=== PATIENT | female | born 1985 | race Caucasian/White ===

== ENCOUNTER → 2017-01-31 | Outpatient (CLI) | payer OTHER ==
--- NOTE | 2017-01-31 12:58 | REP ---
Right foot four views : There is no fracture or dislocation. Mineralization and joint spaces are normal. There are no calcifications or foreign bodies. Impression: Negative right foot . Signed by Virgilio Morataya MD 01/31/2017 12:49 P
== END ==
LOC: M WUC 11:14
PROVIDERS: ATTEND Physician Assistant
DX: M79.671 Pain in right foot (principal)

== ENCOUNTER → 2017-02-22 | Outpatient (REF) | payer OTHER | LOC: M LAB REF 17:33 | PROVIDERS: ATTEND Nurse Practitioner Family | DX: Z11.59 Encounter for screening for other viral diseases (principal) ==

== ENCOUNTER → 2017-03-27 | Outpatient (CLI) | payer OTHER | LOC: M OUTALCOH 12:38 | PROVIDERS: ATTEND Psychiatry & Neurology Psychiatry | DX: Z13.9 Encounter for screening, unspecified (principal); F10.20 Alcohol dependence, uncomplicated ==

== ENCOUNTER → 2018-04-17 | Outpatient (REF) | payer OTHER ==
[2018-04-17 13:18] LABS: HEMOGLOBIN 12.3 g/dl (12.0-15.5); MEAN CORPUSCULAR HEMOGLOBIN 30.8 pg (27.0-33.0); MEAN CORPUSCULAR HGB CONC 34.2 g/dl (32.0-36.5); MEAN CORPUSCULAR VOLUME 90.2 fl (80.0-96.0); PLATELET COUNT, AUTOMATED 271 10^3/uL (150-450); RED BLOOD COUNT 3.99 10^6/uL (4.00-5.40); RED CELL DISTRIBUTION WIDTH 11.4 % (11.5-14.5)
[2018-04-17 22:21] LABS: HCG, SERUM QUANTITATIVE 21991 MIU/ML
[2018-04-18 15:44] LABS: HBsAg Prenatal NEGATIVE (NEGATIVE)
[2018-04-18 15:44] LABS: HEPATITIS C VIRUS ABY INDEX 0.1 INDEX (<0.8)
[2018-04-18 15:45] LABS: HIV 1&2 SCREEN CENTAUR NEGATIVE (NEGATIVE); RUBELLA IgG QUALITATIVE IMMUNE (IMMUNE)
== END ==
LOC: M LAB REF 12:35
DX: O36.80X0 Pregnancy with inconclusive fetal viability, not applicable or unspecified (principal)

== ENCOUNTER → 2018-09-05 | Outpatient (CLI) | payer OTHER ==
[2018-09-05 16:46] LABS: HEMATOCRIT 33.6 % (36.0-47.0); HEMOGLOBIN 11.3 g/dl (12.0-15.5); MEAN CORPUSCULAR HEMOGLOBIN 31.2 pg (27.0-33.0); MEAN CORPUSCULAR HGB CONC 33.6 g/dl (32.0-36.5); MEAN CORPUSCULAR VOLUME 92.8 fl (80.0-96.0); PLATELET COUNT, AUTOMATED 224 10^3/uL (150-450); RED BLOOD COUNT 3.62 10^6/uL (4.00-5.40)
== END ==
LOC: M LAB 15:33
PROVIDERS: ATTEND Obstetrics & Gynecology
DX: Z34.82 Encounter for supervision of other normal pregnancy, second trimester (principal)

== ENCOUNTER → 2018-09-16 | Outpatient (CLI) | payer OTHER | LOC: M LAB 07:22 | PROVIDERS: ATTEND Obstetrics & Gynecology | DX: R73.02 Impaired glucose tolerance (oral) (principal) ==

== ENCOUNTER → 2018-11-13 | Outpatient (REF) | payer OTHER, MEDICAID | LOC: M LAB REF 13:07 | PROVIDERS: ATTEND Obstetrics & Gynecology | DX: Z34.83 Encounter for supervision of other normal pregnancy, third trimester (principal) ==

== ENCOUNTER 2018-11-28 00:04 | Inpatient (IN) | payer OTHER, MEDICAID ==
[2018-11-28] VITALS (9 sets, daily range): BP systolic 98–128; BP diastolic 53–69
[~2018-11-28] VITALS: Ht 160 cm; Wt 65.9 kg
[2018-11-28] MEDS ORDERED: PRENTAB77 PO (00:49)
[2018-11-28] MEDS ORDERED: OXYTOCIN 30 UNITS IN 0.9% NaCl 500ML IV BAG (J2590) As Ordered ONE (01:08)
[2018-11-28] MEDS ORDERED: LR 1,000 ML IV SCH (01:44)
[2018-11-28] MEDS ORDERED: LACTATED RINGER'S 1000 ML IV STA (01:44)
[2018-11-28] MEDS ORDERED: OXYTOCIN DRIP 30 UNITS in APPROPRIATE DILUENT 1 EA IV SCH (01:46)
[2018-11-28] MEDS ORDERED: ACETAMINOPHEN 500 MG TAB PO PRN (02:00)
[2018-11-28] MEDS ORDERED: MEASLES,MUMPS,RUBELLA VACCINE INJ (MMR-II) (90707) SC SCH (02:00)
[2018-11-28] MEDS ORDERED: IBUPROFEN 800 MG TAB PO PRN (02:00)
[2018-11-28] MEDS ORDERED: IBUPROFEN 600 MG TAB PO PRN (02:00)
[2018-11-28] MEDS ORDERED: RHOGAM 300 MCG (1500 IU) INJ (J2790) IM SCH (02:00)
[2018-11-28] MEDS ORDERED: METHYLERGONOVINE MALEATE 0.2 MG TAB PO PRN (02:00)
[2018-11-28] MEDS ORDERED: DIBUCAINE 1% OINTMENT 30GM TOP PRN (02:00)
[2018-11-28] MEDS ORDERED: ACETAMINOPHEN TAB 650MG DOSE (2X325MG) PO PRN (02:00)
[2018-11-28] MEDS ORDERED: DOCUSATE SODIUM 100 MG CAP PO PRN (02:00)
[2018-11-28 02:08] LABS: CORD GAS ABE V -4.5; CORD GAS HCO3 V 17.5 MEQ/L; CORD GAS O2 SAT V 66.5 %; CORD GAS PCO2 V 26.2 mmHg; CORD GAS PH V 7.443 UNITS; CORD GAS PO2 V 25.1 mmHg; CORD GAS TCO2 V 18.3 MEQ/L
[2018-11-28 02:11] LABS: CORD GAS ABE A -3.1; CORD GAS HCO3 A 21.4 MEQ/L; CORD GAS O2 SAT A 34.6 %; CORD GAS PCO2 A 36.7 mmHg; CORD GAS PH A 7.383 UNITS; CORD GAS PO2 A 15.5 mmHg; CORD GAS SBC A 20.3 MEQ/L; CORD GAS TCO2 A 22.5 MEQ/L
[2018-11-28 02:29] LABS: HEMATOCRIT 29.6 % (36.0-47.0); HEMOGLOBIN 9.8 g/dl (12.0-15.5); MEAN CORPUSCULAR HEMOGLOBIN 28.4 pg (27.0-33.0); MEAN CORPUSCULAR HGB CONC 33.1 g/dl (32.0-36.5); MEAN CORPUSCULAR VOLUME 85.8 fl (80.0-96.0); PLATELET COUNT, AUTOMATED 251 10^3/uL (150-450); RED BLOOD COUNT 3.45 10^6/uL (4.00-5.40); WHITE BLOOD COUNT 14.8 10^3/uL (4.0-10.0)
--- NOTE | 2018-11-28 07:17 | HPE ---
DATE OF ADMISSION: 11/28/2018 Beatriz Leon is a 33-year-old female, 4, para 2-0-1-2, with an expected date of confinement (EDC) of 12/11/2018, estimated gestational age (EGA) 38-2/7 weeks gestation who presented to labor and delivery with spontaneous rupture of membranes in active labor. Upon my evaluation, she was found to be fully dilated with fetus at 0 station. At this point, a decision was made for admission. Her record was reviewed which was essentially unremarkable. LABS: Blood type is B+, rubella immune, hepatitis negative, HIV negative, GC and chlamydia negative, 1-hour sugar testing was abnormal, her 3 hours was within normal limits. Her GBS is negative. PAST MEDICAL HISTORY: Denies. PAST SURGICAL HISTORY: [place] tooth extraction and a dilatation and curettage. SOCIAL HISTORY: The patient is a former smoker. Denies any alcohol or drug use. FAMILY HISTORY: Unremarkable. REVIEW OF SYSTEMS: Unremarkable. PHYSICAL EXAMINATION: Normal-appearing female in no acute distress. Abdomen: Soft, nontender, nondistended. Extremities: No clubbing, cyanosis or edema. Vaginal Exam: Fully dilated, fetus at 0 station, in vertex position. Tracing reviewed, category one tracing. ASSESSMENT: Intrauterine at 38-2/7 weeks gestation with spontaneous rupture of membranes in second phase of labor. PLAN: Admit to labor and delivery. Routine labs sent. Awaiting delivery.
--- NOTE | 2018-11-28 07:25 | DN ---
DATE OF DELIVERY: 11/28/2018 Beatriz is a 33-year-old female, 4, para 2-0-1-2, who was admitted at 38-2/7 weeks gestation with spontaneous rupture of membrane in active labor. She then pushed and delivered a live male in right occiput anterior position over an intact perineum. Apgars 7 and 9. weight 6 pounds 11 ounces. Placenta delivered spontaneously intact. Three-vessel cord. Estimated blood loss 300 mL. Both mother and baby in stable condition.
[2018-11-28] MEDS: PRENATAL VITAMINS CHEWABLE TABLET PO SCH (07:52)
[2018-11-29 06:00] VITALS: BP 101/55
[2018-11-29] MEDS: PRENATAL VITAMINS CHEWABLE TABLET PO SCH (08:36)
[2018-11-29] MEDS ORDERED: IBUP-1114 PO (13:17)
[2018-11-29] MEDS ORDERED: PREN29TA4 PO (13:17)
[2018-11-29] MEDS ORDERED: MAPA500T2 PO (13:17)
== END 2018-11-29 13:50 | disposition home or self-care (01) | DRG 807 ==
LOC: M LDO 00:04 → M LDI 00:32 → M OBS 03:45
PROVIDERS: ADMIT Obstetrics & Gynecology; ATTEND Obstetrics & Gynecology
PROC: 10E0XZZ Delivery of Products of Conception, External Approach (ICD-10-PCS; principal; 2018-11-28)
DX: O80 Encounter for full-term uncomplicated delivery (principal); Z37.0 Single live birth; Z3A.38 38 weeks gestation of pregnancy

== ENCOUNTER → 2019-03-09 | Outpatient (CLI) | payer MEDICAID ==
[~2019-03-09] MED LIST: IBUP-1114 PO; MAPA500T2 PO; PREN29TA4 PO; PRENTAB77 PO
== END ==
LOC: M OUTALCOH 08:00
PROVIDERS: ATTEND Psychiatry & Neurology Psychiatry
DX: F10.10 Alcohol abuse, uncomplicated (principal)

== ENCOUNTER → 2019-04-08 | Outpatient (REF) | payer MEDICAID ==
[2019-04-08 18:35] LABS: HEMOGLOBIN 12.7 g/dl (12.0-15.5); MEAN CORPUSCULAR HEMOGLOBIN 29.1 pg (27.0-33.0); MEAN CORPUSCULAR HGB CONC 33.4 g/dl (32.0-36.5); PLATELET COUNT, AUTOMATED 259 10^3/uL (150-450); RED BLOOD COUNT 4.37 10^6/uL (4.00-5.40); WHITE BLOOD COUNT 11.4 10^3/uL (4.0-10.0)
[2019-04-08 19:12] LABS: HCG, SERUM QUANTITATIVE 58979 MIU/ML
[2019-04-08 19:16] LABS: RUBELLA IgG QUALITATIVE IMMUNE (IMMUNE)
[2019-04-08 19:45] LABS: HIV 1&2 SCREEN CENTAUR NEGATIVE (NEGATIVE)
[2019-04-10 11:46] LABS: HEPATITIS C VIRUS ABY INDEX 0.1 INDEX (<0.8)
== END ==
LOC: M LAB REF 17:36
PROVIDERS: ATTEND Obstetrics & Gynecology
DX: O36.80X0 Pregnancy with inconclusive fetal viability, not applicable or unspecified (principal); Z3A.00 Weeks of gestation of pregnancy not specified

== ENCOUNTER → 2019-04-13 | Outpatient (RCR) | payer MEDICAID | LOC: M OUTALCOH 03-18 10:04 | PROVIDERS: ATTEND Psychiatry & Neurology Psychiatry | DX: F10.10 Alcohol abuse, uncomplicated (principal) ==

== ENCOUNTER 2019-05-08 08:30 | Outpatient (RCR) | payer MEDICAID | END 2019-05-14 | LOC: M OUTALCOH 08:30 | PROVIDERS: ATTEND Psychiatry & Neurology Psychiatry | DX: F10.10 Alcohol abuse, uncomplicated (principal) ==

== ENCOUNTER 2019-06-05 09:30 | Outpatient (RCR) | payer MEDICAID | END 2019-06-13 | LOC: M OUTALCOH 09:30 | PROVIDERS: ATTEND Psychiatry & Neurology Psychiatry | DX: F10.10 Alcohol abuse, uncomplicated (principal) ==

== ENCOUNTER 2019-06-18 09:03 | Outpatient (RCR) | payer MEDICAID | END 2019-07-14 | LOC: M OUTALCOH 09:03 | PROVIDERS: ATTEND Psychiatry & Neurology Psychiatry | DX: F10.10 Alcohol abuse, uncomplicated (principal) ==

== ENCOUNTER → 2019-09-02 | Outpatient (CLI) | payer MEDICAID ==
[2019-09-02 11:22] LABS: HEMATOCRIT 31.8 % (36.0-47.0); HEMOGLOBIN 10.2 g/dl (12.0-15.5); MEAN CORPUSCULAR HEMOGLOBIN 29.3 pg (27.0-33.0); MEAN CORPUSCULAR HGB CONC 32.1 g/dl (32.0-36.5); MEAN CORPUSCULAR VOLUME 91.4 fl (80.0-96.0); PLATELET COUNT, AUTOMATED 225 10^3/uL (150-450); RED BLOOD COUNT 3.48 10^6/uL (4.00-5.40)
== END ==
LOC: M LAB 09:40
PROVIDERS: ATTEND Obstetrics & Gynecology
DX: Z34.82 Encounter for supervision of other normal pregnancy, second trimester (principal); Z3A.00 Weeks of gestation of pregnancy not specified

== ENCOUNTER → 2019-10-21 | Outpatient (REF) | payer MEDICAID | LOC: M LAB REF 16:43 | PROVIDERS: ATTEND Obstetrics & Gynecology | DX: Z34.83 Encounter for supervision of other normal pregnancy, third trimester (principal); Z3A.00 Weeks of gestation of pregnancy not specified ==

== ENCOUNTER 2019-11-14 19:35 | Inpatient (IN) | payer MEDICAID ==
[~2019-11-14] VITALS: Ht 160 cm; Wt 71.1 kg
[2019-11-14] VITALS (14 sets, daily range): BP systolic 107–132; BP diastolic 54–81
[2019-11-14] MEDS ORDERED: LR 1,000 ML IV SCH ×2 (20:02→23:16)
[2019-11-14] MEDS ORDERED: LACTATED RINGER'S 1000 ML IV STA (20:02)
[2019-11-14 20:31] LABS: HEMOGLOBIN 9.3 g/dl (12.0-15.5); MEAN CORPUSCULAR HEMOGLOBIN 25.8 pg (27.0-33.0); MEAN CORPUSCULAR HGB CONC 32.1 g/dl (32.0-36.5); MEAN CORPUSCULAR VOLUME 80.3 fl (80.0-96.0); PLATELET COUNT, AUTOMATED 229 10^3/uL (150-450); RED BLOOD COUNT 3.61 10^6/uL (4.00-5.40); WHITE BLOOD COUNT 14.2 10^3/uL (4.0-10.0)
[2019-11-14] MEDS ORDERED: FENTANYL 2MCG/ML ROPIVACAINE 0.2% IN 0.9% NACL 100ML IVBAG As Ordered ONE (20:51)
[2019-11-14] MEDS ORDERED: ePHEDrine SULFATE 25 MG/5 ML(5MG/ML) SYRINGE IV PRN (21:18)
[2019-11-14] MEDS ORDERED: ONDANSETRON 4MG/2ML VIAL IV PRN ×2 (21:18→23:30)
[2019-11-14] MEDS ORDERED: FENTANYL/ROPIVACAINE/NACL BAG 100 ML EPIDURAL SCH (21:18)
[2019-11-14] MEDS ORDERED: NALOXONE INJ 0.4MG/1ML VIAL (J2310 PER 1MG) IV PRN (21:18)
[2019-11-14] MEDS ORDERED: EPIDURAL COMMENT XX SCH (21:18)
[2019-11-14] MEDS ORDERED: REFRIGERATOR IV KEYS XX PRN (21:18)
[2019-11-14] MEDS ORDERED: LACTATED RINGER'S 1000 ML IV PRN (21:18)
[2019-11-14] MEDS ORDERED: EPIDURAL/PCA KEYS XX PRN (21:18)
[2019-11-14] MEDS ORDERED: diphenhydrAMINE 50MG/ML VIAL (J1200) IV PRN (21:18)
[2019-11-14] MEDS ORDERED: OXYTOCIN 30 UNITS IN 0.9% NaCl 500ML IV BAG (J2590) As Ordered ONE (21:47)
[2019-11-14] MEDS ORDERED: OXYTOCIN DRIP 30 UNITS in IV 1 EA IV SCH (23:16)
[2019-11-14] MEDS ORDERED: DIBUCAINE 1% OINTMENT 30GM TOP PRN (23:30)
[2019-11-14] MEDS ORDERED: RHOGAM 300 MCG (1500 IU) INJ (J2790) IM SCH (23:30)
[2019-11-14] MEDS ORDERED: IBUPROFEN 800 MG TAB PO PRN (23:30)
[2019-11-14] MEDS ORDERED: DOCUSATE SODIUM 100 MG CAP PO PRN (23:30)
[2019-11-14] MEDS ORDERED: IBUPROFEN 600 MG TAB PO PRN (23:30)
[2019-11-14] MEDS ORDERED: MEASLES,MUMPS,RUBELLA VACCINE INJ (MMR-II) (90707) SC SCH (23:30)
[2019-11-14] MEDS ORDERED: PROMETHAZINE 25 MG TAB PO PRN (23:30)
[2019-11-14] MEDS ORDERED: ACETAMINOPHEN TAB 650MG DOSE (2X325MG) PO PRN (23:30)
[2019-11-14] MEDS ORDERED: ACETAMINOPHEN 500 MG TAB PO PRN (23:30)
[2019-11-15 00:07] VITALS: BP 110/62
[2019-11-15 00:22] VITALS: BP 108/53
[2019-11-15 02:00] VITALS: BP 116/56
[2019-11-15 06:27] VITALS: BP 104/58
[2019-11-15] MEDS: PRENATAL VITAMINS CHEWABLE TABLET PO SCH (07:30)
[2019-11-15 18:31] VITALS: BP 134/61
[2019-11-16 06:30] VITALS: BP 130/73
[2019-11-16] MEDS: PRENATAL VITAMINS CHEWABLE TABLET PO SCH (09:10)
== END 2019-11-16 12:50 | disposition home or self-care (01) | DRG 560 ==
LOC: M LDO 19:35 → M LDI 20:04 → M OBS 11-15 01:47
PROVIDERS: ADMIT Obstetrics & Gynecology; ATTEND Obstetrics & Gynecology
PROC: 10E0XZZ Delivery of Products of Conception, External Approach (ICD-10-PCS; principal; 2019-11-14)
DX: O80 Encounter for full-term uncomplicated delivery (principal); Z37.0 Single live birth; Z3A.38 38 weeks gestation of pregnancy

== ENCOUNTER → 2020-06-21 | Outpatient (CLI) | payer MEDICAID | LOC: M LABSMTC 14:34 | PROVIDERS: ATTEND Pediatrics | DX: Z11.59 Encounter for screening for other viral diseases (principal) ==

== ENCOUNTER → 2022-05-24 | Outpatient (CLI) | payer OTHER | LOC: M RAD 11:47 | PROVIDERS: ATTEND Physician Assistant Medical | DX: R07.82 Intercostal pain (principal) ==

== ENCOUNTER → 2024-02-25 | Outpatient (REF) | payer OTHER | LOC: M LAB REF 12:47 | PROVIDERS: ATTEND Advanced Practice Midwife | DX: R30.0 Dysuria (principal) ==

== ENCOUNTER 2024-03-01 21:31 | Emergency (ER) | payer OTHER ==
[~2024-03-01] VITALS: Ht 157.5 cm; Wt 56.6 kg
[2024-03-01 21:32] VITALS: BP 149/95; TEMP 98; O2SAT 100
== END 2024-03-01 23:06 | disposition left against medical advice (07) ==
LOC: M ED 21:31
DX: Z53.21 Procedure and treatment not carried out due to patient leaving prior to being seen by health care provider (principal)